=== PATIENT | male | born 1965 | race African-American/Black ===

== ENCOUNTER 2024-04-16 15:35 | Emergency (ER) | payer MEDICAID ==
[~2024-04-16] VITALS: Ht 172.7 cm; Wt 50.0 kg
[2024-04-16 17:04] VITALS: BP 138/87; PULSE 65; RESP 18; TEMP 98.2
== END 2024-04-16 20:30 | disposition left against medical advice (07) ==
LOC: EMS 15:35
DX: S80.812A Abrasion, left lower leg, initial encounter (principal); L29.9 Pruritus, unspecified; X58.XXXA Exposure to other specified factors, initial encounter; Y93.89 Activity, other specified; Y92.89 Other specified places as the place of occurrence of the external cause; Y99.8 Other external cause status
CPT/HCPCS: 99283; Z7502